=== PATIENT | female | born 1955 | race Caucasian/White ===

== ENCOUNTER 2019-03-25 15:48 | Emergency (ER) | payer BC ==
--- NOTE | 2019-03-25 16:16 | RAD ---
Left ankle 3 views HISTORY: Left ankle injury. FINDINGS: Ankle mortise and talar dome are intact. 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 Prominent soft tissue swelling over the lateral malleolus. No fracture planes are apparent. Small plantar enthesophyte. Mild to moderate osteophytosis of the ankle and hindfoot. Mild fluid distention of the ankle joint capsule. IMPRESSION: Soft tissue swelling. No fractures are visible. Ankle joint fluid may indicate an internal soft tissue injury. Mild degenerative changes of the ankle and hindfoot. Small plantar heel spur.
[2019-03-25] MEDS ORDERED: Ketorolac Tromethamine 60 MG/2 ML VIAL ONE (16:30)
== END 2019-03-25 16:39 | disposition home or self-care (01) ==
LOC: SCSER 15:48
DX: S93.402A Sprain of unspecified ligament of left ankle, initial encounter (principal); Z87.891 Personal history of nicotine dependence; X50.9XXA Other and unspecified overexertion or strenuous movements or postures, initial encounter
CPT/HCPCS: 96372; J1885

== ENCOUNTER 2022-01-19 12:49 | Outpatient (CLI) | payer MEDICARE | END 2022-01-19 12:50 | disposition home or self-care (01) | LOC: BICCT 12:49 | PROVIDERS: ATTEND Family Medicine | DX: Z12.2 Encounter for screening for malignant neoplasm of respiratory organs (principal); Z87.891 Personal history of nicotine dependence | CPT/HCPCS: 71271 ==